=== PATIENT | female | born 1950 | race Caucasian/White ===

== ENCOUNTER → 2016-06-16 | Outpatient (CLI) | payer MEDICARE, OTHER ==
[~2016-06-16] MED LIST: CALCCHW12; CATAPRES PATCH; COUM1TAB; DOXY50CA; FML; METH2.5T; NEXI20CA; NIFE60TA4; NITR0.3D; PULMICORT; SYNT75TA; TEARGEN; THERGRAN; TYLENOL #3
--- NOTE | 2016-06-16 12:40 | REPMRS ---
Patient History The patient states she had a clinical breast exam in March 2016. Patient is postmenopausal and has history of cancer in the left breast at age 45. No known family history of cancer. Malignant lumpectomy of the left breast, 1996. Patient has lost 10-15 pounds since last mammo. Digital Mammo Screening Bilat: June 16, 2016 - Exam #: [id number] Bilateral CC and MLO view(s) were taken. Technologist: Alpa Viveros, Technologist Prior study comparison: June 15, 2015, bilateral digital mammo screening bilat performed at [facility]. May 22, 2014, bilateral digital mammo screening bilat performed at [facility]. FINDINGS: The breast tissue is extremely dense which could obscure a lesion on mammography. There is no evidence of cancer on this mammogram. No significant changes when compared with prior studies. ASSESSMENT: BI-RADS/ACR category 2 mammogram. Benign finding(s). Given the personal history of breast cancer, and dense breast parenchyma, MRI of the breasts is recommended. Recommendation Routine screening mammogram of both breasts in 1 year (for women over age 40). This mammogram was interpreted with the aid of an FDA-approved computer-aided dectection system. Electronically Signed By: Matty Sandra MD 06/16/16 [id number]
== END ==
LOC: M RAD 11:04
PROVIDERS: ATTEND Family Medicine
DX: Z12.31 Encounter for screening mammogram for malignant neoplasm of breast (principal); Z78.0 Asymptomatic menopausal state; R92.8 Other abnormal and inconclusive findings on diagnostic imaging of breast

== ENCOUNTER → 2016-12-06 | Outpatient (REF) | payer MEDICARE, OTHER | LOC: M LAB REF 12:48 | PROVIDERS: ATTEND Emergency Medicine | DX: N19 Unspecified kidney failure (principal) ==

== ENCOUNTER → 2017-07-27 | Outpatient (CLI) | payer MEDICARE, OTHER | LOC: M RAD 10:48 | DX: Z12.31 Encounter for screening mammogram for malignant neoplasm of breast (principal) | CPT/HCPCS: 77067 ==